=== PATIENT | male | born 1960 | race Two or more races ===

== ENCOUNTER 2021-08-31 15:03 | Inpatient (IN) | payer MEDICAID ==
[~2021-08-31] VITALS: Ht 185.4 cm; Wt 94.3 kg
[2021-08-31 15:03] VITALS: BP 144/75
--- NOTE | 2021-08-31 15:03 | NUR ---
RT at bedside
--- NOTE | 2021-08-31 15:03 | NUR ---
PT PLACED ON HIGH FLOW 30 L 100% FIO2. PT AWAKE, ALERT. WILL OBTAIN ABG.
--- NOTE | 2021-08-31 15:03 | NUR ---
1500 BIBA ALS TO ER BED 8
--- NOTE | 2021-08-31 15:05 | NUR ---
61 y/o M BIBA from work c/o carbon monoxide exposure. Per EMS, pt found inside big freezer with forklift with doors shut presenting confused GCS 14 A&Ox2 to name/age. Patient was assisted from freezer baseline SpO2 96% on room air. Pt presented with 4L by NC @ 97%. Pt denies SOB, chest pain, dizziness, headache, LOC, fall/trauma/injury, blurry vision. Upon ER arrival, patient A&Ox4. Pt placed onto engine monitor showing baseline SpO2 96% on room air; RT at bedside placed pt on high flow O2 at this time. Bed locked in lowest position, side rails x 1, call light in reach. PMH/Sx/Meds: Cresencio MILLER Addendum: 08/31/21 at 1857 by [facility] IV ESTABLISHED TO L AC BY EMS PRIOR TO ARRIVAL.
--- NOTE | 2021-08-31 15:32 | NUR ---
Dr. Almonte is evaluating pt at bedside
--- NOTE | 2021-08-31 15:42 | NUR ---
Blood sample handed to CPT Jeane
[2021-08-31 15:46] LABS: BASOPHILS % (AUTO) 0.7 % (0.0-2.0); EOSINOPHILS # (AUTO) 0.1 K/uL (0-0.4); EOSINOPHILS % (AUTO) 1.9 % (0.0-4.0); HEMATOCRIT 44.5 % (36-52); HEMOGLOBIN 15.8 g/dL (12.0-18.0); LYMPHOCYTES % (AUTO) 29.3 % (20.5-51.1); MEAN CORPUSCULAR HEMOGLOBIN 31 pg (27-31); MEAN CORPUSCULAR HGB CONC 36 g/dL (33-37); MEAN CORPUSCULAR VOLUME 87.6 fL (80-94); MONOCYTES # (AUTO) 0.5 K/uL (0.8-1.0); MONOCYTES % (AUTO) 6.8 % (1.7-9.3); NEUTROPHILS # (AUTO) 4.1 K/uL (1.8-7.7); NEUTROPHILS % (AUTO) 61.3 % (42.2-75.2); PLATELET COUNT (AUTO) 273 K/uL (140-450); RED BLOOD CELL COUNT(AUTO) 5.08 MIL/uL (4.20-6.10); RED CELL DISTRIBUTION WIDTH 13.1 % (11.6-13.7); WHITE BLOOD COUNT (AUTO) 6.7 K/uL (4.8-10.8)
[2021-08-31 16:11] LABS: ALBUMIN 3.7 g/dL (3.4-5.0); ANION GAP 14.4 (8-16); CARBON DIOXIDE 26.8 mmol/L (21-32); CREATININE 1.2 mg/dL (0.6-1.3); POTASSIUM 4.2 mmol/L (3.5-5.1); TOTAL BILIRUBIN 0.3 mg/dL (0.0-1.0)
--- NOTE | 2021-08-31 16:45 | NUR ---
Pt resting in high-fowlers with high flow O2 in place. Pt states he feels a lot better. A&Ox4 at this time. Denies SOB, CP, nausea, vomiting. SpO2 100%.
[2021-08-31] MEDS: NACL 0.9% 1,000 ML IV SCH ×2 (17:21→23:59)
--- NOTE | 2021-08-31 17:27 | NUR ---
Pt A&Ox4, reports he feels better. GCS 15 at this time.
--- NOTE | 2021-08-31 18:32 | NUR ---
Patient resting with both eyes open on telephone. monitoring manager in place. Pt denies SOB, chest pain, nausea at this time. States "I feel a lot better." VSS; respirations even/unlabored. SpO2 100% on high flow O2. Bed locked in lowest position, side rails x1
--- NOTE | 2021-08-31 19:20 | NUR ---
Report and transfer of care endorsed to IDA Carter.
[2021-08-31 19:56] VITALS: BP 142/74
[2021-08-31 20:50] VITALS: BP 152/82
--- NOTE | 2021-08-31 20:54 | NUR ---
PT TRANSPORTED TO 126 W/ NO ADVERSE EVENTS PT REMAINS ON HFNC W/ NO TITRATIONS AT THIS TIME HFNC PLUGGED INTO RED OUTLET WILL CONTINUE TO MONITOR
--- NOTE | 2021-08-31 21:00 | NUR ---
ADMITTED THE PATIENT FROM ER VIA GURNEY. PATIENT A/A/OX4, ABLE TO AMBULATE FROM THE GURNEY TO HIS BED. PATIENT NOT IN ANY DISTRESS AND NO COMPLAIN ON ARRIVAL TO THE FLOOR. DENIES ANY CHEST PAIN, SOB AND DIZZINESS. SA ON DRAWING TRACER, HR-72. VSS, AFEBRILE, SATING 100% ON HFNC, 30L. IVF INFUSING ORDERED. ORIENTED THE PATIENT TO THE ROOM SETTING AND USE OF CALL LIGHT SYSTEM. DISCUSSED POC WITH THE PT AND PATIENT VERBALIZED UNDERSTANDING. CALL LIGHT WITHIN REACH. WILL CONTINUE POC AND MONITORING.
--- NOTE | 2021-08-31 21:00 | NUR ---
PT ADMITTED TO ROOM 126 WITH TELE MONITOR. VITALS STABLE. PT AMBULATED FROM GURNEY TO BED WITHOUT PROBLEM. CARE TRANSFERRED TO
--- NOTE | 2021-08-31 21:08 | NUR ---
The patient's care was reviewed and supervised by HAM THOMAS RN.
--- NOTE | 2021-08-31 21:21 | NUR ---
CALLED [facility] REGARDING HFNC TO CONFIRM DURATION OF 100% O2 SPOKE W/ DR AGUILAR AND I WAS PROVIDED A VERBAL ORDER FOR ABG AND WILL PROCEED ACCORDING TO RESULTS
[2021-08-31] MEDS ORDERED: HYDROcodone/APAP 7.5/325 MG 1 TAB PO PRN (21:35)
[2021-08-31] MEDS ORDERED: POTASSIUM CHLORIDE 10 MEQ TABER PO PRN (21:35)
[2021-08-31] MEDS ORDERED: guaiFENesin DM 200/20 MG-10 ML 10 ML UDC PO PRN (21:35)
[2021-08-31] MEDS ORDERED: ONDANSETRON 4 MG/2 ML VIAL IM/IVP PRN (21:35)
[2021-08-31] MEDS ORDERED: DOCUSATE SODIUM 100 MG GELCAP PO PRN (21:35)
[2021-08-31] MEDS ORDERED: ACETAMINOPHEN 325 MG TAB PO PRN (21:35)
[2021-08-31] MEDS ORDERED: ZOLPIDEM 5 MG TAB PO PRN (21:35)
[2021-08-31 22:25] LABS: PROTHROMBIN TIME 9.2 secs (10.8-13.4)
--- NOTE | 2021-08-31 22:38 | NUR ---
CALLED [facility] TO REPORT ABG RESULTS AND THEY WERE NOT AVAILABLE AT THIS TIME. WILL ATTEMPT AGAIN AT A LATER TIME.
[2021-08-31 22:39] LABS: CHOL/HDL RATIO 9.2 (1-4.5); FREE T4 (FREE THYROXINE) 0.92 ng/dL (0.76-1.46); PHOSPHORUS 4.1 mg/dL (2.5-4.9); THYROID STIMULATING HORMONE 1.97 uIU/mL (0.34-3.74)
--- NOTE | 2021-08-31 23:06 | NUR ---
REPORTED ABG RESULTS TO DR. MCCURDY. NO CHANGES TO HFNC AT THIS TIME WILL CHECK AGAIN TOMORROW MORNING.
--- NOTE | 2021-08-31 23:20 | NUR ---
ABG WAS DONE EARLIER AND RESULT WAS REPORTED BY Tyrone BONNER TO DR AGUILAR.
[2021-09-01] VITALS: BP 133/70
--- NOTE | 2021-09-01 | NUR ---
VITAL SIGNS STABLE, AFEBRILE, SATING 100% ON HFNC, 30L, FIO2-100%. SR ON ROOFER, HR-65. PT NOT IN ANY DISTRESS AND NO COMPLAIN AT THIS TIME. CALL LIGHT WITHIN REACH.
--- NOTE | 2021-09-01 02:00 | NUR ---
PATIENT ASLEEP AT THIS TIME . VISIBLE CHEST RISE AND FALL NOTED. PT NOT IN ANY DISTRESS. SAFETY MEASURES IN PLACED. CALL LIGHT WITHIN REACH. WILL CONTINUE OBSERVATION.
[2021-09-01 04:00] VITALS: BP 140/49
--- NOTE | 2021-09-01 04:00 | NUR ---
VITAL SIGNS STABLE, AFEBRILE, SATING 100% ON HFNC, 30L, FIO2-100%. SB ON RADIOGRAPHIC TECHNOLOGIST, HR-52. PT NOT IN ANY DISTRESS AND NO COMPLAIN AT THIS TIME. CALL LIGHT WITHIN REACH.
[2021-09-01 07:00] LABS: ANION GAP 11.9 (8-16); CARBON DIOXIDE 26.2 mmol/L (21-32); CREATININE 0.9 mg/dL (0.6-1.3); POTASSIUM 4.1 mmol/L (3.5-5.1)
[2021-09-01] MEDS: NACL 0.9% 1,000 ML IV SCH ×4 (07:03→23:15)
[2021-09-01 07:06] LABS: BASOPHILS % (AUTO) 0.3 % (0.0-2.0); EOSINOPHILS # (AUTO) 0.1 K/uL (0-0.4); EOSINOPHILS % (AUTO) 1.8 % (0.0-4.0); HEMATOCRIT 38.3 % (36-52); HEMOGLOBIN 13.3 g/dL (12.0-18.0); LYMPHOCYTES # (AUTO) 2.1 K/uL (2.0-11.5); LYMPHOCYTES % (AUTO) 29.7 % (20.5-51.1); MEAN CORPUSCULAR HEMOGLOBIN 31 pg (27-31); MEAN CORPUSCULAR HGB CONC 35 g/dL (33-37); MEAN CORPUSCULAR VOLUME 88.3 fL (80-94); MONOCYTES # (AUTO) 0.6 K/uL (0.8-1.0); MONOCYTES % (AUTO) 8.4 % (1.7-9.3); NEUTROPHILS # (AUTO) 4.3 K/uL (1.8-7.7); NEUTROPHILS % (AUTO) 59.8 % (42.2-75.2); PLATELET COUNT (AUTO) 237 K/uL (140-450); RED BLOOD CELL COUNT(AUTO) 4.33 MIL/uL (4.20-6.10); RED CELL DISTRIBUTION WIDTH 13.3 % (11.6-13.7); WHITE BLOOD COUNT (AUTO) 7.2 K/uL (4.8-10.8)
--- NOTE | 2021-09-01 07:38 | NUR ---
ENDORSED PATIENT TO DAY RN FOR CONTINUITY OF CARE. PATIENT STABLE. NOT IN ANY DISTRESS AND NO COMPLAIN AT THIS TIME. SIGNING OFF.
--- NOTE | 2021-09-01 07:54 | NUR ---
RECEIVED REPORT FROM UNDER WATER ASSISTANT FOR CONTINUITY OF CARE. PATIENT ALERT ORIENTED X4. NOT IN ANY DISTRESS NOTED. WITH IVF ON GOING AND INFUSING WELL. ON MONITOR SHOWS SR TO SB. ON HF @ 30%, FIO2 100%, SATURATION 100%. DENIES SOB AND CHEST PAIN. NEEDS ATTENDED. WILL CONTINUE TO MONITOR.
[2021-09-01] MEDS: ALBUTEROL SULFATE/IPRATROPIU 3 ML SOL IH SCH ×3 (07:56→19:36)
--- NOTE | 2021-09-01 07:57 | NUR ---
RECEIVED ON A VAPOTHERM HIGH FLOW NASAL CANNULA WITH COMPRESSOR ON PLUGGED INTO RED OUTLET TOLERATING WELL WITHOUT ADVERSE REACTIONS NOTED SATURATION 100% ON FIO2 OF 100% ABG PO2 ON 08/31 AT 2125 257mmHg POST TITRATED FIO2 TO 30% CHIEF ENGINEER PRODUCTION TO NOTIFY RN
[2021-09-01 08:00] VITALS: BP 150/77
--- NOTE | 2021-09-01 08:00 | NUR ---
PATIENT HAS BEEN SCREENED AND CATEGORIZED MODERATE NUTRITION RISK. PATIENT WILL BE SEEN WITHIN 3-5 DAYS OF ADMISSION. 09/01/21 09/05/[address]
[2021-09-01] MEDS: PANTOPRAZOLE 40 MG TABEC PO SCH (08:49)
--- NOTE | 2021-09-01 09:12 | NUR ---
DC PLANN[age] YRS OLD MALE PATIENT WAS ADMITTED FROM HOME WITH A DX OF CARBON MONOXIDE POISONING. PATIENT HAS NO MEDICAL HISTORY. 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 CXR SHOWED NO RADIOGRAPHIC EVIDENCE OF ACUTE CARDIOPULMONARY DISEASE. ADMINISTERED IVF, REQUIRED HF O2 30L/NC SATING 100%. CONSULTED WITH PULMO. DC PLAN TO WEAN OF O2 AND RETURN HOME WHEN STABLE CM TO FOLLOW.
[2021-09-01 12:00] VITALS: BP 150/77
--- NOTE | 2021-09-01 12:15 | NUR ---
PATIENT RESTING IN BED, NO SOB NOTED, WANTS TO GO HOME. WILL CONTINUE TO MONITOR.
[2021-09-01 16:00] VITALS: BP 136/62
--- NOTE | 2021-09-01 18:16 | NUR ---
PATIENT EATING DINNER WITH GOOD APPETITE. NO SOB ON ROOM AIR, DOWNGRADE TO MED SURG. WILL CONTINUE TO MONITOR.
--- NOTE | 2021-09-01 19:20 | NUR ---
REPORT GIVEN TO THE RANGE OPERATOR AT BEDSIDE FOR CONTINUITY OF CARE. PATIENT IS IN STABLE CONDITION.
--- NOTE | 2021-09-01 19:30 | NUR ---
RECEIVED BEDSIDE REPORT FROM DAY SHIFT RN. PT IS AWAKE RESTING IN BED. PT IS ON RA SATING 98%. IVF RUNNING MD ORDER. CALL LIGHT WITHIN REACH. WILL CONTINUE TO MONITOR AND PROVIDE PLAN OF CARE.
[2021-09-01 20:00] VITALS: BP 149/66
--- NOTE | 2021-09-01 21:30 | NUR ---
PT PRESENTS LYING IN BED W/ NO SIGNS OF RESPIRATORY DISTRESS SATING 98% ON RA. BS ARE CLEAR NO LABORED BREATHING, NO USE OF ACCESSORY MUSCLES. PT STATES HE FEELS A LOT BETTER WILL CONTINUE TO MONITOR.
--- NOTE | 2021-09-01 22:00 | NUR ---
PT IS AWAKE WATCHING TELEVISION. PT IS ON RA SATING 97%. IVF RUNNING MD ORDER. PT SHOWS NO SIGN OF DISTRESS. NO SOB NOTED. CALL LIGHT WITHIN REACH. WILL CONTINUE TO MONITOR AND PROVIDE PLAN OF CARE.
--- NOTE | 2021-09-02 | NUR ---
PT IS SLEEPING RESTING IN BED. PT IS ON RA SATING 98%. PT SHOWS NO SIGN OF DISTRESS. NO SOB NOTED. CALL LIGHT WITHIN REACH. WILL CONTINUE TO MONITOR AND PROVIDE PLAN OF CARE.
[2021-09-02] MEDS: ALBUTEROL SULFATE/IPRATROPIU 3 ML SOL IH SCH ×2 (01:00→07:12)
--- NOTE | 2021-09-02 01:05 | NUR ---
PT REFUSED TX RATHER SLEEP. RESTING COMFORTABLY IN BED SATING 98% ON RA.
[2021-09-02 04:00] VITALS: BP 161/70
--- NOTE | 2021-09-02 04:00 | NUR ---
PT IS SLEEPING. IVF RUNNING MD ORDER. PT IS ON RA SATING 98%. NO SIGNS OF DISTRESS. NO SIGNS OF SOB NOTED. CALL LIGHT WITHIN REACH. ALL SAFETY MEASURES TAKEN. WILL CONTINUE TO MONITOR AND PROVIDE PLAN OF CARE.
--- NOTE | 2021-09-02 06:00 | NUR ---
PT IS AWAKE. PT IS ON RA. IVF RUNNING MD ORDER. PT IS NOT IN DISTRESS AND HAS NO COMPLAINS AT THIS TIME. CALL LIGHT WITHIN REACH. ALL SAFETY MEASURES TAKEN. WILL CONTINUE TO MONITOR AND PROVIDE PLAN OF CARE.
[2021-09-02] MEDS: NACL 0.9% 1,000 ML IV SCH (06:27)
[2021-09-02 07:08] LABS: BASOPHILS % (AUTO) 0.9 % (0.0-2.0); EOSINOPHILS # (AUTO) 0.4 K/uL (0-0.4); EOSINOPHILS % (AUTO) 7.9 % (0.0-4.0); HEMATOCRIT 38.1 % (36-52); HEMOGLOBIN 12.8 g/dL (12.0-18.0); LYMPHOCYTES # (AUTO) 1.1 K/uL (2.0-11.5); LYMPHOCYTES % (AUTO) 21.1 % (20.5-51.1); MEAN CORPUSCULAR HEMOGLOBIN 35 pg (27-31); MEAN CORPUSCULAR HGB CONC 34 g/dL (33-37); MEAN CORPUSCULAR VOLUME 104.4 fL (80-94); MONOCYTES # (AUTO) 0.7 K/uL (0.8-1.0); MONOCYTES % (AUTO) 12.7 % (1.7-9.3); NEUTROPHILS # (AUTO) 3.1 K/uL (1.8-7.7); NEUTROPHILS % (AUTO) 57.4 % (42.2-75.2); PLATELET COUNT (AUTO) 247 K/uL (140-450); RED BLOOD CELL COUNT(AUTO) 3.65 MIL/uL (4.20-6.10); RED CELL DISTRIBUTION WIDTH 13.3 % (11.6-13.7); WHITE BLOOD COUNT (AUTO) 5.3 K/uL (4.8-10.8)
--- NOTE | 2021-09-02 07:25 | NUR ---
ENDORSED PT TO DAY SHIFT RN. PT IS STABLE.
--- NOTE | 2021-09-02 07:26 | NUR ---
RECEIVED REPORT FROM ARBOR END MAINSPRING FORMER NURSE. PATIENT LYING DOWN IN BED TALKING ON HIS PHONE. NO DISTRESS NOTED. AAOX4, CALM, APPROPRIATE AFFECT, ON ROOM AIR. IV SITE INTACT, PATENT, AND INFUSING IVF PER MD ORDERS. SKIN INTACT. REVIEWED PLAN OF CARE WITH PATIENT. VERBALIZED UNDERSTANDING. SAFETY MEASURES IN PLACE, CALL LIGHT WITHIN REACH. WILL CONTINUE TO MONITOR.
[2021-09-02 07:32] LABS: ANION GAP 12.4 (8-16); CARBON DIOXIDE 24.7 mmol/L (21-32); CREATININE 0.7 mg/dL (0.6-1.3); POTASSIUM 4.1 mmol/L (3.5-5.1)
[2021-09-02 08:00] VITALS: BP 142/70
[2021-09-02] MEDS: PANTOPRAZOLE 40 MG TABEC PO SCH (09:39)
--- NOTE | 2021-09-02 09:39 | NUR ---
SCHEDULED MEDICATIONS DUE GIVEN. WILL CONTINUE TO MONITOR.
[2021-09-02] MEDS ORDERED: ATOR40TA PO (10:18)
--- NOTE | 2021-09-02 11:30 | NUR ---
DISCHARGE INSTRUCTIONS PROVIDED TO PATIENT IN PREFERRED LANGUAGE OF ROMANIAN. INSTRUCTIONS ON FOLLOW-UP WITH PCP, NEW MEDICATIONS AND SIDE EFFECTS, AND CARBON MONOXIDE POISONING MANAGEMENT/PREVENTION. ANSWERED ALL OF PATIENT'S QUESTIONS REGARDING DISCHARGE. IV SITE REMOVED WITH MINIMAL BLOOD AND LUMEN COMPLETELY INTACT. ESCORTED PATIENT DOWN TO LOBBY VIA STEADY AMBULATION. PATIENT DISCHARGED AT THIS TIME TO HOME IN PRIVATE VEHICLE WITH FAMILY.
[2021-09-02 21:44] LABS: T4 (THYROXINE) 7.6 ug/dL (4.5 - 12.0)
== END 2021-09-02 11:30 | disposition home or self-care (01) | DRG 816 ==
LOC: MED 15:03 → MTU 16:39 → MMU 18:03
PROVIDERS: ADMIT Family Medicine; ATTEND Family Medicine
PROC: 5A0935A Assistance with Respiratory Ventilation, Less than 24 Consecutive Hours, High Flow/Velocity Cannula (ICD-10-PCS; principal; 2021-08-31)
PROC: 5A0935A Assistance with Respiratory Ventilation, Less than 24 Consecutive Hours, High Flow/Velocity Cannula (ICD-10-PCS; 2021-09-01)
DX: T58.8X1A Toxic effect of carbon monoxide from other source, accidental (unintentional), initial encounter (principal); J96.00 Acute respiratory failure, unspecified whether with hypoxia or hypercapnia; G92.9 Unspecified toxic encephalopathy; R73.9 Hyperglycemia, unspecified; E78.2 Mixed hyperlipidemia; F17.210 Nicotine dependence, cigarettes, uncomplicated; Y92.89 Other specified places as the place of occurrence of the external cause; Z71.6 Tobacco abuse counseling
CPT/HCPCS: 36415; 36600; 71045; 80048; 80053; 82150; 82803; 83036; 83690; 83735; 83880; 84100; 84436; 84439; 84443; 84479; 84484; 85025; 85610; 85730; 87081; 93005; 94640; 99291; Q0092